=== PATIENT | male | born 1965 | race Caucasian/White ===

== ENCOUNTER 2024-02-03 13:11 | Outpatient (CLI) | payer MEDICARE | END 2024-02-03 13:12 | disposition home or self-care (01) | LOC: CSHWCC 13:11 | PROVIDERS: ATTEND Nurse Practitioner Family | DX: I87.313 Chronic venous hypertension (idiopathic) with ulcer of bilateral lower extremity (principal); I89.0 Lymphedema, not elsewhere classified; E66.01 Morbid (severe) obesity due to excess calories; I73.9 Peripheral vascular disease, unspecified | CPT/HCPCS: 11042; 99213; G0463 ==

== ENCOUNTER 2024-03-04 15:33 | Outpatient (CLI) | payer MEDICARE | END 2024-03-04 15:34 | disposition home or self-care (01) | LOC: CSHWCC 15:33 | PROVIDERS: ATTEND Nurse Practitioner Family | DX: I87.313 Chronic venous hypertension (idiopathic) with ulcer of bilateral lower extremity (principal); L97.222 Non-pressure chronic ulcer of left calf with fat layer exposed; L97.212 Non-pressure chronic ulcer of right calf with fat layer exposed; I73.9 Peripheral vascular disease, unspecified; I89.0 Lymphedema, not elsewhere classified; E66.01 Morbid (severe) obesity due to excess calories ==

== ENCOUNTER 2024-03-11 14:53 | Outpatient (CLI) | payer MEDICARE | END 2024-03-11 14:54 | disposition home or self-care (01) | LOC: CSHWCC 14:53 | PROVIDERS: ATTEND Nurse Practitioner Family | DX: I87.313 Chronic venous hypertension (idiopathic) with ulcer of bilateral lower extremity (principal); L97.222 Non-pressure chronic ulcer of left calf with fat layer exposed; L97.212 Non-pressure chronic ulcer of right calf with fat layer exposed; I89.0 Lymphedema, not elsewhere classified; E66.01 Morbid (severe) obesity due to excess calories; I73.9 Peripheral vascular disease, unspecified ==